=== PATIENT | female | born 1975 | race Caucasian/White ===

== ENCOUNTER 2017-11-07 09:35 | Emergency (ER) ==
[2017-11-07 09:44] VITALS: BP 101/67; TEMP 97.1; BMI 27.2
[2017-11-07] MEDS ORDERED: NORCO 10-325 PO STA (12:14)
--- NOTE | 2017-11-07 14:09 | CT ---
Exam: CT abdomen pelvis without intravenous contrast. Comparison: 02/2010. Reason for exam: Pain. FINDINGS: No pleural effusion, or focal consolidation in the partially imaged lung bases. The liver, spleen, adrenal glands, and pancreas appear grossly unremarkable within limitations of a n oncontrasted study. The gallbladder has been removed. No nephrolithiasis, hydronephrosis or hydroureter is seen in either kidney. No intra-abdominal free air or pelvic free fluid. There is a similar appearing focus of high density material in the anterior abdominal fat on axial im age number 63 that does not appear significantly changed from the previous exam performed on 12/01/19 10. The bladder appears grossly unremarkable although evaluation is limited by non distension. The uterus appears mildly prominent in size with fluid in the endometrium. No suspicious appearing o steoblastic or osteolytic lesion. Impression: 1. No acute inflammatory findings are seen within the abdomen or pelvis. 2. Similar appearing high density material in the anterior abdominal fat on axial image number 63 no t significantly changed when compared to imaging dating back to 11/30/2009.
--- NOTE | 2017-11-07 14:21 | ED.PDOC ---
General ED Provider: Dr. SCHUYLER LAINEZ Chief Complaint: Back Pain Stated Complaint: abdominal pain/flank pain Time Seen by Physician: 09:40 (seen with pt's nurse miller at all times ) Mode of Arrival: Walk-In Information Source: Patient Exam Limitations: No limitations Nursing and Triage Documentation Reviewed and Agree: Yes Does patient meet sepsis criteria?: Yes If yes, has appropriate treatment been initiated?: No System Inflammatory Response Syndrome: Not Applicable Sepsis Protocol: For patient's 13 years and over: Temp is 96.8 and below OR 101 and greater Pulse >90 BPM Resp >20/minute Acutely Altered Mental Status Are patient's symptoms suggestive of a new infection, such as: -Pneumonia -Skin, Soft Tissue -Endocarditis -UTI -Bone, Joint Infection -Implantable Device -Acute Abdominal Infection -Wound Infection -Meningitis -Blood Stream Catheter Infection -Unknown GI Complaint Exam - Abdominal Pain Complaint/Exam Onset: Gradual Duration: 1 day Symptoms Are: Still present Timing: Intermittent Initial Severity: Moderate Current Severity: Moderate Radiates To: Reports: Flank (right and left) Character: Reports: Aching Alleviating: Reports: None Associated Signs and Symptoms: Denies: Diaphoresis, Fever, Cough, Chest pain, Dizziness, Back pain, Constipation, Blood in stool, Dysuria, Urinary frequency, Decreased urine output, Decreased appetite, Vaginal bleeding, Vaginal discharge , Nausea, Vomiting, Diarrhea, Sore throat, Decreased activity Related History: Reports: Similar episode AAA Risk Factors: Reports: None Cardiac Risk Factors: Reports: None Ectopic Risk Factors: Reports: None Ovarian Torsion Risk Factors: Reports: None Surgical Obstruction Risk Factors: Reports: None Related Surgical History: Reports: Cholecystectomy Patient Rh Status: Unknown Abdominal Findings: Present: None Differential Diagnoses: Appendicitis, Bowel Obstruction, Constipation, Diverticulitis, Gastroenteritis, UTI, Ovarian Cyst Quality Indicators for AMI: EKG in 10min. Quality Indicators for Cardiac Chest Pain: EKG in 10min. Review of Systems - Review Of Systems Constitutional: Reports: No symptoms Eyes: Reports: No symptoms Ears, Nose, Mouth, Throat: Reports: No symptoms Respiratory: Reports: No symptoms Cardiac: Reports: No symptoms GI: Reports: Abdominal pain : Reports: No symptoms Musculoskeletal: Reports: No symptoms Skin: Reports: No symptoms Neurological: Reports: No symptoms Endocrine: Reports: No symptoms Hematologic/Lymphatic: Reports: No symptoms All Other Systems: Reviewed and Negative Past Medical History - Past Medical History Previously Healthy: Yes Endocrine: Reports: None Cardiovascular: Reports: None Respiratory: Reports: None Hematological: Reports: None Gastrointestinal: Reports: None Genitourinary: Reports: None Neuro/Psych: Reports: None Musculoskeletal: Reports: None Cancer: Reports: None Last Menstrual Period: 10/20 - Surgical History General Surgical History: Reports: None - Family History Family History: Reports: None - Social History Smoking Status: Former smoker Hx Substance Use: No Alcohol Screening: None Physical Exam - Physical Exam Appearance: Well-appearing, No pain distress, Well-nourished Eyes: VALENCIA, EOMI, Conjunctiva clear ENT: Ears normal, Nose normal, Oropharynx normal Respiratory: Airway patent, Breath sounds clear, Breath sounds equal, Respirations nonlabored Cardiovascular: RRR, Pulses normal, No rub, No murmur GI/: Soft, Nontender, No masses, Bowel sounds normal, No Organomegaly Musculoskeletal: Normal strength, ROM intact, No edema, No calf tenderness Skin: Warm, Dry, Normal color Neurological: Sensation intact, Motor intact, Reflexes intact, Cranial nerves intact, Alert, Oriented Psychiatric: Affect appropriate, Mood appropriate Interpretation - Radiology Interpretation Radiology Interpretation By: Radiologist Radiology Results: No acute changes Critical Care Note - Critical Care Note Total Time (mins): 0 Course - Course Hematology/Chemistry: 11/07/17 12:25 11/07/17 12:25 Orders, Labs, Meds: Lab Review 11/07/17 11/07/17 11/07/17 12:25 12:25 12:25 WBC 6.31 RBC 4.55 Hgb 11.3 L Hct 36.2 L MCV 79.6 L MCH 24.8 L MCHC 31.2 L RDW Coeff of Wendy 15.9 H Plt Count 248 Immature Gran % (Auto) 0.3 Neut % (Auto) 54.9 Lymph % (Auto) 31.7 [place] % (Auto) 11.6 H Eos % (Auto) 1.0 Baso % (Auto) 0.5 Immature Gran # (Auto) 0.0 Neut # (Auto) 3.5 Lymph # (Auto) 2.0 [place] # (Auto) 0.7 Eos # (Auto) 0.1 Baso # (Auto) 0.0 Sodium 137 Potassium 3.7 Chloride 106 Carbon Dioxide 25 Anion Gap 9.7 BUN 11 Creatinine 0.71 Estimated GFR (MDRD) 91.00 BUN/Creatinine Ratio 15.49 Glucose 84 Calcium 8.7 Total Bilirubin 0.4 AST 14 L ALT 16 Alkaline Phosphatase 67 Total Protein 6.7 Albumin 3.3 L Globulin 3.4 Albumin/Globulin Ratio 0.97 Amylase 66 Lipase 39 Serum , Qual Negative Orders Category Date Time Status EKG-(ED ONLY) Stat CARDIO 11/07/17 12:13 Completed AMYLASE Stat LAB 11/07/17 12:25 Completed CBC W/ AUTO DIFF Stat LAB 11/07/17 12:25 Completed COMPREHENSIVE METABOLIC PANEL Stat LAB 11/07/17 12:25 Completed LIPASE Stat LAB 11/07/17 12:25 Completed SERUM Stat LAB 11/07/17 12:25 Completed URINALYSIS C & S IF INDICATED Stat LAB 11/07/17 12:58 Received Hydrocodone Bit/Acetaminophen [Palo 10-325] MEDS 11/07/17 12:14 Discontinued 1 tab PO ONCE STA CT ABDOMEN/PELVIS WO CONTRAST Stat RADS 11/07/17 13:29 Completed Medications Discontinued Medications Generic Name Dose Route Start Last Admin Trade Name Sherita PRN Reason Stop Dose Admin Hydrocodone Bitart/Acetaminophen 1 tab 11/07/17 12:14 11/07/17 12:19 Palo 10-325 PO 11/07/17 12:15 1 tab ONCE STA Administration Vital Signs: Temp Pulse Resp BP Pulse Ox 11/07/17 09:36 97.1 F L 91 H 18 101/67 98 Departure - Departure Time of Disposition: 14:22 Disposition: HOME SELF-CARE Discharge Problem: Abdominal pain Instructions: Abdominal Pain (ED) Condition: Good Pt referred to PMD for follow-up: Yes IPMP verified?: No Additional Instructions: Please call your Family Physician as soon as possible to schedule a follow-up appointment. Allergies/Adverse Reactions: Allergies No Known Allergies Allergy (Verified 11/07/17 09:45) Home Medications: Ambulatory Orders 1 [No Reported Medications] 12/02/13 Disposition Discussed With: Patient, Family
== END 2017-11-07 14:28 | disposition home or self-care (01) ==
LOC: ED 09:35
DX: R10.9 Unspecified abdominal pain (principal)
CPT/HCPCS: 36415; 80053; 81001; 82150; 83690; 84703; 85025; 93005; 93010; 99282